=== PATIENT | male | born 1960 | race Caucasian/White ===

== ENCOUNTER 2017-06-07 01:03 | Emergency (ER) | payer BC ==
[2017-06-07 01:12] VITALS: TEMP 97.7
[2017-06-07] MEDS ORDERED: LIDOCAINE 2% JELLY 20 ML (UROJECT) ONE (01:14)
[2017-06-07] MEDS ORDERED: LIDOCAINE 2% JELLY 20 ML (UROJECT) UR ONE (01:17)
[2017-06-07 01:40] LABS: COLOR PALE YELLOW; LEUKOCYTE ESTERASE,URINE NEGATIVE (NEGATIVE); NITRITE,URINE NEGATIVE (NEGATIVE)
--- NOTE | 2017-06-07 02:36 | EDPHY ---
H & P Stated Complaint: urinary retention x7h HPI/ROS: HPI The patient presents with urinary retention present for the last several hours, urinating about 3 times over the course of an hour. He feels distension of his abdomen. He is had some intermittent difficulties with voiding over the last several years, however this is worse today. He does not have any hematuria, he does not have a fever. REVIEW OF SYSTEMS Constitutional: No fever, no chills. Eyes: No discharge. ENT: No sore throat. Cardiovascular: No chest pain, no palpitations. Respiratory: No cough, no shortness of breath. Gastrointestinal: No abdominal pain, no vomiting. Genitourinary: No hematuria. Musculoskeletal: No back pain. Skin: No rashes. Neurological: No headache. PMHx: No diabetes, no hypertension Soc Hx: Visiting from [place] FHx: PHYSICAL General Appearance: Alert, no distress Eyes: Pupils equal and round no pallor or injection ENT, Mouth: Mucous membranes moist Respiratory: There are no retractions, lungs are clear to auscultation Cardiovascular: Regular rate and rhythm Gastrointestinal: Abdomen is soft and non-tender, no masses, bowel sounds normal Neurological: A&O, moves all extremities Skin: Warm and dry, no rashes Musculoskeletal: Neck is supple non tender Extremities: symmetrical, full range of motion Psychiatric: Patient is oriented X 3, there is no agitation Source: Patient Exam Limitations: No limitations - Personal History Current Tetanus/Diphtheria Vaccine: Yes Current Tetanus Diphtheria and Acellular Pertussis (TDAP): Yes - Medical/Surgical History Other PMH: denies - Social History Smoking Status: Never smoked Constitutional: Initial Vital Signs Temperature (C) 36.5 C 06/07/17 01:10 Heart Rate 76 06/07/17 01:10 Respiratory Rate 20 06/07/17 01:10 Blood Pressure 176/102 H 06/07/17 01:10 O2 Sat (%) 96 06/07/17 01:10 O2 Delivery Mode Room Air Allergies/Adverse Reactions: No Known Allergies Allergy (Unverified 06/07/17 01:07) Home Medications: Medication Instructions Recorded Tamsulosin HCl [Flomax 0.4 MG (*)] 0.4 mg PO DAILY #10 cap 06/07/17 Medical Decision Making Differential Diagnosis: This is a 56-year-old healthy male who presents with several hours of urinary retention. He does have a history of incomplete emptying previously and 1-2 episodes a night of nocturia. In the emergency department, Pizarro catheter is placed with return of 700 mL of clear urine. Urine analysis was sent and was negative for infection. The patient is visiting from [place] and has plans to travel via airplane in 2 days. He is concerned about traveling with a Pizarro catheter in place and asks if we can consult Urology to see if there any alternatives or any treatment options that exists. I discussed the case with Dr. Brunilda Becker of Urology. She recommends Flomax, Pizarro in place for several days, voiding trial afterwards. I have discussed this with the patient who agrees to proceed. We have placed him in a leg bag which will be more comfortable. I have given him his 1st dose of Flomax. I have advised him that he can follow up with his primary care doctor for a voiding trial in the office in the next several days. He is in agreement with this plan. - Data Points Laboratory Results: 06/07/17 01:31 Urine Color PALE YELLOW Urine Appearance CLEAR Urine pH 5.0 (5.0-7.5) Ur Specific [place] 1.004 (1.002-1.030) Urine Protein NEGATIVE (NEGATIVE) Urine Ketones NEGATIVE (NEGATIVE) Urine Blood 2+ H (NEGATIVE) Urine Nitrate NEGATIVE (NEGATIVE) Urine Bilirubin NEGATIVE (NEGATIVE) Urine Urobilinogen NEGATIVE EU EU (0.2-1.0) Ur Leukocyte Esterase NEGATIVE (NEGATIVE) Urine RBC 1-3 /hpf /hpf (0-3) Urine WBC 1-3 /hpf /hpf (0-3) Ur Epithelial Cells NONE SEEN /lpf /lpf (NONE-1+) Urine Glucose NEGATIVE (NEGATIVE) Medications Given: Discontinued Medications Lidocaine (Uroject Lidocaine 2% Jelly) 20 ml UR EDNOW ONE Stop: 06/07/17 01:18 Last Admin: 06/07/17 01:24 Dose: 20 ml Tamsulosin HCl (Flomax) 0.4 mg PO EDNOW ONE Stop: 06/07/17 02:46 Last Admin: 06/07/17 02:48 Dose: 0.4 mg Departure - Departure Disposition: Home, Routine, Self-Care Clinical Impression: Urinary retention Condition: Good Instructions: Urinary Retention in Men (ED), Pizarro Catheter Placement and Care (ED) Additional Instructions: Please return to the emergency department if you are worse in any way. Referrals: RAMESH SALGUERO [Other] - As per Instructions Brunilda Becker MD [Medical Doctor] - As per Instructions Prescriptions: Tamsulosin HCl [Flomax 0.4 MG (*)] 0.4 mg PO DAILY #10 cap
[2017-06-07] MEDS ORDERED: TAMSULOSIN HCL 0.4 MG CAP PO ONE (02:45)
[2017-06-07 02:51] VITALS: BP 139/79; PULSE 63; RESP 16; O2SAT 94
== END 2017-06-07 03:07 | disposition home or self-care (01) ==
PROC: 0T9B70Z Drainage of Bladder with Drainage Device, Via Natural or Artificial Opening (ICD-10-PCS; principal; 2017-06-07)
DX: R33.9 Retention of urine, unspecified (principal)